=== PATIENT | male | born 1960 | race Caucasian/White ===

== ENCOUNTER 2019-06-02 22:41 | Emergency (ER) | payer OTHER ==
[2019-06-02] MEDS ORDERED: Ondansetron 4 MG Tab.DIS ONE (22:45)
[2019-06-02] MEDS ORDERED: Acetaminophen/HYDROcodone 325-5 MG Tab ONE (22:45)
[2019-06-02] MEDS ORDERED: Erythromycin Base 0.5% Ophth Oint 3.5 GM Tube ONE (23:30)
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
== END 2019-06-02 23:45 | disposition home or self-care (01) ==
LOC: LB.ED 22:41
DX: T26.12XA Burn of cornea and conjunctival sac, left eye, initial encounter (principal); T26.02XA Burn of left eyelid and periocular area, initial encounter; W39.XXXA Discharge of firework, initial encounter
CPT/HCPCS: 99282; A9270